=== PATIENT | male | born 1990 ===

== ENCOUNTER 2021-12-20 07:49 | Outpatient (CLI) | payer BC | END 2021-12-20 07:50 | disposition home or self-care (01) | LOC: ULT 07:49 | PROVIDERS: ATTEND Internal Medicine Gastroenterology | DX: R10.9 Unspecified abdominal pain (principal) | CPT/HCPCS: 76700 ==

== ENCOUNTER 2021-12-20 08:15 | Day surgery (SDC) | payer BC ==
[2021-12-16 15:58] VITALS: BMI 25.7
[2021-12-20] MEDS ORDERED: Fentanyl 100 MCG/2 ML VIAL ONE (09:46)
[2021-12-20] MEDS ORDERED: PROPOFOL 200 MG/20 ML VIAL ONE (10:45)
[2021-12-20] MEDS ORDERED: ePHEDrine 50 MG/ML VIAL ONE (10:45)
[2021-12-20] MEDS ORDERED: Lidocaine 1% PF 5 ML VIAL ONE (10:45)
== END 2021-12-20 12:08 | disposition home or self-care (01) ==
LOC: SDC 08:15
PROVIDERS: ATTEND Internal Medicine Gastroenterology
PROC: 0DB98ZX Excision of Duodenum, Via Natural or Artificial Opening Endoscopic, Diagnostic (ICD-10-PCS; principal; 2021-12-20)
PROC: 0DB38ZX Excision of Lower Esophagus, Via Natural or Artificial Opening Endoscopic, Diagnostic (ICD-10-PCS; principal; 2021-12-20)
DX: R10.13 Epigastric pain (principal); R13.10 Dysphagia, unspecified; R10.9 Unspecified abdominal pain
CPT/HCPCS: 76700; 88305; J2704; J3010; J3490